=== PATIENT | male | born 1945 | race Caucasian/White ===

== ENCOUNTER → 2017-10-03 | Outpatient (CLI) | payer OTHER ==
[~2017-10-03] MED LIST: ACIDOPHILUS LA1 EACH PO; ALBUTEROL INHAL17 GM; AVELOX400 MG PO; CITRATE OF MAG296 ML PO; COMBIVENT INH; DUONEB 2.5-0.5 M3 ML INH; ENOXAPARIN40 MG/0.4 SQ; HYDROCODON-ACE1 EAC7 PO; KEFLEX500 MG PO; NEBULIZER MISCELL; NYSTATIN 1100000 U/M PO; NYSTATIN100000 UNI SW&SWALLOW; OXYIR5 MG PO; PERCOCET 5-3251 EACH PO; PREDNISONE 20 M20 M1 PO; PREDNISONE50 MG PO; PRILOSEC 20 MG20 MG PO; PROTONIX40 M4 PO; SYMBICORT160 MCG/4. INH; UNICOMPLEX M TA1 TA1 PO; VENTOLIN HFA 1818 GM INH; XANAX 0.5 MG0.5 MG PO; ZANTAC 150MG T150 MG PO; ZOFRAN4 MG PO; ZPAK PO
== END ==
LOC: M.CT 13:32
DX: J43.2 Centrilobular emphysema (principal); R91.8 Other nonspecific abnormal finding of lung field

== ENCOUNTER → 2017-10-04 | Outpatient (CLI) | payer OTHER ==
[2017-10-04 10:03] LABS: BE 0 mmol/L (-2 to +3); HCO3 23.5 mmol/L (22.0-26.0); PCO2 35.2 mmHg (35.0-45.0); PO2 69.3 mmHg (75.0-100.0); pH 7.443 (7.340-7.450)
== END ==
LOC: M.LAB 09:20 → M.PUL 09:20
PROVIDERS: Internal Medicine Critical Care Medicine
DX: J44.9 Chronic obstructive pulmonary disease, unspecified (principal)

== ENCOUNTER 2017-10-30 14:27 | Emergency (ER) | payer OTHER ==
[~2017-10-30] VITALS: Ht 175.3 cm; Wt 47.6 kg
[~2017-10-30 14:27] MED LIST changes: -NYSTATIN100000 UNI SW&SWALLOW
[2017-10-30 14:53] LABS: ABSOLUTE BASOPHILS 0.1 thou/uL (0.0-0.2); ABSOLUTE EOSINOPHILS 0.2 thou/uL (0.0-0.7); ABSOLUTE MONOCYTES 0.6 thou/uL (0.0-1.2); ABSOLUTE NEUTROPHILS 4.7 thou/uL (1.6-8.1); BASOPHILS 0.8 %; EOSINOPHILS 2.4 %; HEMATOCRIT 46.1 % (42.0-52.0); HEMOGLOBIN 15.6 gm/dL (14.0-18.0); LYMPHOCYTES 35.2 %; MCH 31.7 pg (26.0-34.0); MCHC 33.9 g/dL (28.0-37.0); MCV 93.6 fL (80.0-100.0); NUCLEATED RBCS 0 /100WBC; PLATELET COUNT* 315 thou/uL (150-400); POLYS 54.6 %; RBC 4.93 mil/uL (4.50-6.00); RDW-CV 12.6 % (10.5-14.5); WBC 8.5 thou/uL (4.0-11.0)
[2017-10-30 15:03] LABS: INR 1.1; PROTIME 10.5 Seconds (9.20-11.50)
[2017-10-30 15:04] LABS: APTT 29.1 Seconds (25.0-31.3)
[2017-10-30 15:11] LABS: ANION GAP 4 mmol/L (7-16); BUN 12 mg/dL (7-18); CALCIUM 9.3 mg/dL (8.5-10.1); CHLORIDE 106 mmol/L (98-107); CO2 33 mmol/L (21-32); CREATININE 0.8 mg/dL (0.6-1.3); GLUCOSE 84 mg/dL (70-99); POTASSIUM 4.2 mmol/L (3.5-5.1); SODIUM 143 mmol/L (136-145)
[2017-10-30] MEDS ORDERED: PREDNISONE 20 M20 M1 PO (15:32)
[2017-10-30 15:35] LABS: ALBUMIN 3.9 g/dL (3.4-5.0); ALKALINE PHOSPHATASE 63 U/L (46-116); CK-MB MASS 1.7 ng/mL (<0.5-3.6); LIPASE 79 U/L (73-393); NT-PRO BRAIN NAT PEPTIDE 65 pg/mL (<300); SGOT 30 U/L (15-37); SGPT 49 U/L (30-65); TOTAL BILIRUBIN 0.3 mg/dL (<0.1-1.0); TOTAL PROTEIN 7.2 g/dL (6.4-8.2); TROPONIN-I LEVEL <0.06 ng/mL (<0.06)
[2017-10-30 15:45] VITALS: BP 130/67
--- NOTE | 2017-10-31 10:31 | EKG ---
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1945 Requested By: Ashutosh Sanchez Order Number: [id number] MD: Nathaniel Brito Measurements Intervals [place] Rate: 103 P: 85 [place]: 202 QRS: 94 QRSD: 93 T: 81 QT: 340 QTc: 445 Interpretive Statements Sinus tachycardia Biatrial enlargement 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
== END 2017-10-30 15:46 | disposition home or self-care (01) ==
LOC: M.ERS 14:27
PROVIDERS: Family Medicine
DX: J44.1 Chronic obstructive pulmonary disease with (acute) exacerbation (principal); G89.29 Other chronic pain; R10.9 Unspecified abdominal pain; F17.210 Nicotine dependence, cigarettes, uncomplicated

== ENCOUNTER 2017-12-17 09:35 | Emergency (ER) | payer OTHER ==
[~2017-12-17] VITALS: Ht 177.8 cm; Wt 51.4 kg
[2017-12-17 10:22] LABS: ABSOLUTE BASOPHILS 0.1 thou/uL (0.0-0.2); ABSOLUTE EOSINOPHILS 0.2 thou/uL (0.0-0.7); ABSOLUTE LYMPHOCYTES 1.8 thou/uL (0.8-5.3); ABSOLUTE MONOCYTES 0.7 thou/uL (0.0-1.2); ABSOLUTE NEUTROPHILS 6.4 thou/uL (1.6-8.1); BASOPHILS 0.6 %; EOSINOPHILS 2.2 %; HEMATOCRIT 43.2 % (42.0-52.0); HEMOGLOBIN 14.6 gm/dL (14.0-18.0); LYMPHOCYTES 19.8 %; MCH 31.3 pg (26.0-34.0); MCHC 33.8 g/dL (28.0-37.0); MCV 92.7 fL (80.0-100.0); MPV 6.9 fl. (7.2-11.1); NUCLEATED RBCS 0 /100WBC; PLATELET COUNT* 283 thou/uL (150-400); POLYS 69.4 %; RBC 4.66 mil/uL (4.50-6.00); RDW-CV 12.3 % (10.5-14.5); WBC 9.3 thou/uL (4.0-11.0)
[2017-12-17 10:28] LABS: ANION GAP 3 mmol/L (7-16); BUN 15 mg/dL (7-18); CALCIUM 8.1 mg/dL (8.5-10.1); CHLORIDE 102 mmol/L (98-107); CO2 33 mmol/L (21-32); GLUCOSE 88 mg/dL (70-99); POTASSIUM 4.1 mmol/L (3.5-5.1); SODIUM 138 mmol/L (136-145)
[2017-12-17 10:29] LABS: APTT 27.6 Seconds (25.0-31.3)
[2017-12-17 10:38] LABS: ALBUMIN 3.9 g/dL (3.4-5.0); ALKALINE PHOSPHATASE 57 U/L (46-116); LIPASE 86 U/L (73-393); MAGNESIUM 2.1 mg/dL (1.8-2.4); NT-PRO BRAIN NAT PEPTIDE 44 pg/mL (<300); SGOT 23 U/L (15-37); SGPT 35 U/L (30-65); TOTAL BILIRUBIN 0.3 mg/dL (<0.1-1.0); TOTAL PROTEIN 6.7 g/dL (6.4-8.2); TROPONIN-I LEVEL <0.06 ng/mL (<0.06)
[2017-12-17] MEDS ORDERED: NYSTATIN100000 UNI SW&SWALLOW (11:01)
[2017-12-17 11:15] VITALS: BP 109/73
--- NOTE | 2017-12-17 15:32 | EKG ---
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1945 Requested By: Ashutosh Sanchez Order Number: [id number] MD: Nathaniel Brito Measurements Intervals [place] Rate: 95 P: 84 [place]: 179 QRS: 92 QRSD: 93 T: 81 QT: 340 QTc: 428 Interpretive Statements Sinus rhythm Biatrial enlargement incomplete RBBB Compared to ECG 10/30/2017 14:33:40 Sinus tachycardia no longer present Electronically Signed On 12-17-2017 15:32:10 CDT by Nathaniel Brito [email or web address] <ELECTRONICALLY SIGNED> By: Nathaniel Brito MD, [facility] 12/17/17 1532 1006 1006 Nathaniel Brito MD, [facility] /EPI
== END 2017-12-17 11:17 | disposition home or self-care (01) ==
LOC: M.ERS 09:35
PROVIDERS: Family Medicine
DX: J44.1 Chronic obstructive pulmonary disease with (acute) exacerbation (principal); B37.0 Candidal stomatitis; G89.29 Other chronic pain; R10.9 Unspecified abdominal pain; F17.210 Nicotine dependence, cigarettes, uncomplicated

== ENCOUNTER 2018-06-25 11:21 | Emergency (ER) | payer OTHER ==
[~2018-06-25] VITALS: Ht 175.3 cm; Wt 52.6 kg
[~2018-06-25 11:21] MED LIST changes: +NYSTATIN100000 UNI SW&SWALLOW
[2018-06-25 11:54] LABS: ABSOLUTE BASOPHILS 0.1 thou/uL (0.0-0.2); ABSOLUTE EOSINOPHILS 0.1 thou/uL (0.0-0.7); ABSOLUTE LYMPHOCYTES 1.6 thou/uL (0.8-5.3); ABSOLUTE MONOCYTES 0.5 thou/uL (0.0-1.2); EOSINOPHILS 1.6 %; HEMATOCRIT 38.2 % (42.0-52.0); HEMOGLOBIN 12.9 gm/dL (14.0-18.0); LYMPHOCYTES 21.7 %; MCH 31.3 pg (26.0-34.0); MCHC 33.8 g/dL (28.0-37.0); MCV 92.6 fL (80.0-100.0); MONOCYTES 7.5 %; MPV 7.7 fl. (7.2-11.1); NUCLEATED RBCS 0 /100WBC; PLATELET COUNT* 234 thou/uL (150-400); POLYS 68.2 %; RBC 4.12 mil/uL (4.50-6.00); RDW-CV 11.9 % (10.5-14.5); WBC 7.3 thou/uL (4.0-11.0)
[2018-06-25 12:00] LABS: ANION GAP 3 mmol/L (7-16); BUN 12 mg/dL (7-18); CALCIUM 9.1 mg/dL (8.5-10.1); CHLORIDE 102 mmol/L (98-107); CO2 34 mmol/L (21-32); CREATININE 0.8 mg/dL (0.6-1.3); GLUCOSE 96 mg/dL (70-99); POTASSIUM 4.1 mmol/L (3.5-5.1); SODIUM 139 mmol/L (136-145)
[2018-06-25 12:16] LABS: ALBUMIN 3.4 g/dL (3.4-5.0); ALKALINE PHOSPHATASE 111 U/L (46-116); LIPASE 67 U/L (73-393); NT-PRO BRAIN NAT PEPTIDE 94 pg/mL (<300); SGOT 20 U/L (15-37); SGPT 29 U/L (30-65); TOTAL BILIRUBIN 0.4 mg/dL (<0.1-1.0); TOTAL PROTEIN 6.7 g/dL (6.4-8.2); TROPONIN-I LEVEL <0.06 ng/mL (<0.06)
[2018-06-25 12:44] LABS: URINE BILIRUBIN NEGATIVE (Negative); URINE BLOOD NEGATIVE (Negative); URINE CLARITY CLEAR; URINE COLOR YELLOW; URINE GLUCOSE-RANDOM NEGATIVE (Negative); URINE KETONES NEGATIVE (Negative); URINE LEUKOCYTES-REFLEX NEGATIVE (Negative); URINE NITRITE-REFLEX NEGATIVE (Negative); URINE PROTEIN NEGATIVE (Negative); URINE UROBILINOGEN 0.2 E.U./dl (0.2-1.0)
[2018-06-25 15:04] VITALS: BP 106/71
[2018-06-25] MEDS ORDERED: PREDNISONE 10 M10 MG PO (15:08)
--- NOTE | 2018-06-26 16:00 | EKG ---
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
== END 2018-06-25 15:00 | disposition left against medical advice (07) ==
LOC: M.ERS 11:21
PROVIDERS: Nurse Practitioner Family
DX: R10.30 Lower abdominal pain, unspecified (principal); J44.9 Chronic obstructive pulmonary disease, unspecified; F41.9 Anxiety disorder, unspecified; G89.29 Other chronic pain; F17.210 Nicotine dependence, cigarettes, uncomplicated